=== PATIENT | female | born 2000 | race Caucasian/White ===

== ENCOUNTER 2024-05-13 14:14 | Outpatient (CLI) | payer BC ==
[~2024-05-13] VITALS: Ht 167.6 cm; Wt 92.3 kg
--- NOTE | 2024-05-13 14:25 | NUR ---
PT AMBULATORY TO UNIT WITH . REPORTS CTX 4-8MIN APART. NO LOF, NO VAGINAL BLEEDING, POSITIVE MOVEMENT. SVE 3/70/-3. TOLERATED CHECK WELL. VS STABLE. EFM CAT 1. DIFFICULTY TRACING DUE TO MATERNAL POSITIONING. WILL FOLLOW POC.
[2024-05-13] MEDS ORDERED: TYLENOL 325MG325 MG PO (15:28)
[2024-05-13] MEDS ORDERED: PRENATAL TABLET PO (15:28)
[2024-05-13] MEDS ORDERED: UNISOM25 MG PO (15:28)
[2024-05-13 15:35] VITALS: BP 133/90; PULSE 96; TEMP 98
--- NOTE | 2024-05-13 15:55 | NUR ---
DISCUSSED EARLY LABOR. PT COMFORTABLE TO DC HOME. GAVE INSTRUCTIONS.
[2024-05-13] MEDS ORDERED: LR 1,000 ML IV PRN (16:00)
== END 2024-05-13 16:00 | disposition home or self-care (01) ==
LOC: LDRO 14:14
DX: Z34.93 Encounter for supervision of normal pregnancy, unspecified, third trimester (principal); Z3A.38 38 weeks gestation of pregnancy

== ENCOUNTER 2024-05-13 19:31 | Inpatient (IN) | payer BC ==
[~2024-05-13] VITALS: Wt 90.9 kg
[~2024-05-13 19:31] MED LIST: PRENATAL TABLET PO; TYLENOL 325MG325 MG PO; UNISOM25 MG PO
--- NOTE | 2024-05-13 19:50 | NUR ---
PT PRESENTS TO L&D FROM HOME. PT STATES SHE WAS HERE EARLIER THIS MORNING AND HER CERVIX DID NOT CHANGE SO SHE WA SENT HOME. SHE IS CRYING STATING THE CTX'S ARE SO MUCH MORE PAINFUL AND THEY ARE ALSO IN HER BACK. PT SAYS SHE CAN'T GET COMFORTABLE IN ANY POSITION, SHE TRIED TO LAY DOWN TO SLEEP AND SHE COULDN'T. PT IS NOT ABLE TO SIT STILL IN THE BED FOR MONITORING.
[2024-05-13 20:10] VITALS: BP 133/82; PULSE 117; TEMP 98.6
--- NOTE | 2024-05-13 20:10 | NUR ---
SVE /-3. PT STATES THAT IS WHAT SHE WAS WHEN SHE WAS HERE EARLIER, STATES SHE HASN'T CHANGED AT ALL. PT CRYING WITH CONTRACTIONS AND BACK PAIN. STATES SHE COULD NOT STAY AT HOME BECAUSE THE PAIN IS TO MUCH. DR GAMBLE IS ON THE UNIT. I INFORMED HER OF PT'S COMPLAINTS, SVE, FHR, PT NOT ABLE TO SIT STILL FOR HEART MONITORING SHE IS MOVING ALL OVER THE BED AND SITTING UP TRYING TO RELIEVE HE PAIN. INSTRUCTIONS TO MONITOR HER FOR A WHILE AND RECHECK CERVIX.
--- NOTE | 2024-05-13 20:10 | NUR ---
DR GAMBLE INFORMED PT REQUESTS TO GET OFF THE MONITORS AND AMB IN ROOM, USE BIRTHING BALL. ORDERS NOTED PT CAN BE OFF MONITOR WITH INTERMITTENT MONITORING. 2039. PT OFF MONITORS, UP TO BR TO VOID THEN AMB IN ROOM. BIRTHING BALL BROUGHT IN AND PT SHOWN HOW TO USE IT.
[2024-05-13] MEDS ORDERED: LR 1,000 ML IV PRN (20:15)
--- NOTE | 2024-05-13 20:50 | NUR ---
PT IS IN THE BED IN KNEE CHEST POSITION WITH HER DOING COUNTER PRESSURE ON HER BACK. PT STATES IT HELPS A LITTLE BIT.
--- NOTE | 2024-05-13 21:27 | NUR ---
PT BACK TO BED TO MONITOR BABY. FHR 135 MOD, VARIBILITY, ACCELS NOTED. 2129 PT SITTING UP MOANING WITH CONTRACTIONS STATES THE BACK PAIN IS SO INTENSE. FHR MONITOR PICKING UP MATERNAL HR. 2134 CERVICAL RECHECK /-3 DR GAMBLE NOTIFIED ORDERS NOTED TO ADMIT PT AND SHE CAN HAVE HER EPIDURAL WHEN SHE WANTS IT.
[2024-05-13] MEDS ORDERED: LR 1,000 ML IV SCH (22:00)
--- NOTE | 2024-05-13 22:45 | NUR ---
PT SITTING UP IN BED CRYING IWTH BACK PAIN. MONITOR IS PICKING UP MATERNAL HR. PT AMB TO BR TO VOID. ESTELITA CONCEPCION IS ON THE UNIT GETTING THINGS READY TO PLACE PT'S EPIDURAL.
[2024-05-13 22:50] VITALS: BP 129/74; PULSE 102
--- NOTE | 2024-05-13 23:03 | NUR ---
ESTELITA CLOSING MACHINE OPERATOR IS IN THE ROOM PT SITTING ON THE SIDE OF THE BED FOR EPIDURAL. 2317 TEST DOSE DONE. 2325 PT TO A SUPINE POSITION WITH A TILT TO THE RIGHT PER ESTELITA.
[2024-05-13 23:05] LABS: BASO # 0.1 K/mm3 (0.0-0.2); BASO % 0.4 % (0.0-2.0); EOS % 0.2 % (0.0-4.0); GRAN # 9.7 K/mm3 (1.4-6.5); GRAN % 73.2 % (42.2-75.2); HEMATOCRIT 38.5 % (37.0-47.0); HEMOGLOBIN 12.5 g/dl (12.5-16.0); LYMPH # 2.4 K/mm3 (1.2-3.4); LYMPH % 17.9 % (20.0-51.0); MEAN CELL VOLUME 86 fl (80.0-100.0); MEAN CORPUSCULAR HEMOGLOBIN 28 pg (27-31); MEAN CORPUSCULAR HGB CONC 33 g/dl (33.0-37.0); MEAN PLATELET VOLUME 11.6 fl (7.4-10.4); MONO % 7.2 % (1.7-9.3); PLATELET COUNT 170 K/mm3 (130-400); RED BLOOD COUNT 4.46 M/mm3 (4.10-5.30); REDCELL DISTRIBUTION WIDTH-CV 13.7 % (11.5-14.5)
[2024-05-13] MEDS ORDERED: Naloxone 0.4 MG/ML VIAL IV PRN (23:30)
[2024-05-13] MEDS ORDERED: ePHEDrine 50 MG/10 ML VIAL IV PRN (23:30)
[2024-05-13] MEDS ORDERED: diphenhydrAMINE 50 MG/ML 1 ML VIAL IV PRN (23:30)
[2024-05-13] MEDS ORDERED: Ondansetron 4 MG/2 ML VIAL IV PRN (23:30)
[2024-05-13] MEDS ORDERED: diphenhydrAMINE 25 MG CAP PO PRN (23:30)
--- NOTE | 2024-05-13 23:38 | NUR ---
NEWTON CATH PLACE WITH CLEAR YELLOW URINE RETURNED. SVE 4-5 CM/90/-2. 2350 PT IS VERY COMFORTABLE NOW. STATES SHE IS NOT FEELING ANY OF THE CONTRACTIONS NOW OR THE BACK PAIN. PT STATES SHE REALLY WANTS TO GET SOME SLEEP SINCE SHE HAS BEEN IN PAIN SINCE 0100.
[2024-05-13 23:45] VITALS: BP 115/64; PULSE 107; TEMP 98.5
[2024-05-14] VITALS (50 sets, daily range): BP systolic 11–157; BP diastolic 53–89; PULSE 71–113; TEMP 97.9–98.9
[2024-05-14] MEDS ORDERED: Mag/Al Hydrox/Simeth Susp 30 ML CUP PO ONE (02:00)
[2024-05-14] MEDS ORDERED: LR & Oxytocin 500 ML IV ONE (08:10)
[2024-05-14] MEDS ORDERED: Mag/Al Hydrox/Simeth Susp 30 ML CUP PO PRN (12:15)
[2024-05-14] MEDS ORDERED: Witch Hazel 50% Pads Bulk TUB TP PRN (12:15)
[2024-05-14] MEDS ORDERED: oxyCODONE 5 MG TAB PO PRN (12:15)
[2024-05-14] MEDS ORDERED: Measles/Mumps/Rubella Virus Vaccine Live w Diluent 0.5 ML VIAL SQ SCH (12:15)
[2024-05-14] MEDS ORDERED: Acetaminophen 500 MG TAB PO SCH (12:15)
[2024-05-14] MEDS ORDERED: Phenylephrine/Mineral Oil/Petrolatum 57 GM TUBE RC PRN (12:15)
[2024-05-14] MEDS ORDERED: Naloxone 0.4 MG/ML VIAL IV PRN (12:15)
[2024-05-14] MEDS ORDERED: Ibuprofen 800 MG TAB PO SCH (12:15)
[2024-05-14] MEDS ORDERED: Magnes Hydrox (MOM) 80 MG/ML 30 ML CUP PO PRN (12:15)
[2024-05-14] MEDS ORDERED: Loratadine 10 MG TAB PO PRN (12:15)
[2024-05-14] MEDS ORDERED: Sennosides/Docusate 8.6-50 MG TAB PO SCH (17:00)
[2024-05-14] MEDS ORDERED: traZODone 50 MG TAB PO PRN (21:00)
[2024-05-15 00:05] VITALS: BP 118/69; PULSE 72; TEMP 98.4
[2024-05-15 08:00] VITALS: BP 120/64; PULSE 78; TEMP 98
[2024-05-15] MEDS ORDERED: Prenatal Vitamins/Iron/FA TAB PO SCH (09:00)
== END 2024-05-15 16:15 | disposition home or self-care (01) | DRG 807 ==
LOC: LDRO 19:31 → LDR 21:30 → OB 05-14 15:00
PROVIDERS: Obstetrics & Gynecology; ADMIT Obstetrics & Gynecology
PROC: 10E0XZZ Delivery of Products of Conception, External Approach (ICD-10-PCS; principal; 2024-05-14)
PROC: 0KQM0ZZ Repair Perineum Muscle, Open Approach (ICD-10-PCS; 2024-05-14)
DX: O24.420 Gestational diabetes mellitus in childbirth, diet controlled (principal); Z37.0 Single live birth; Z3A.38 38 weeks gestation of pregnancy; O36.63X0 Maternal care for excessive fetal growth, third trimester, not applicable or unspecified; O70.1 Second degree perineal laceration during delivery; O69.81X0 Labor and delivery complicated by cord around neck, without compression, not applicable or unspecified
CPT/HCPCS: J2405; J2590; J7120